=== PATIENT | female | born 1995 ===

== ENCOUNTER → 2018-01-05 | Emergency (ER) | payer BC ==
[~2018-01-05] MED LIST: Sulfamethox/Trimethoprim DS 800/160* TAB PO ONE
[2018-01-05 23:51] LABS: Urine Appearance Cloudy; Urine Blood 3+ (Negative); Urine Color Yellow; Urine Ketones Negative (Negative); Urine Protein 1+(30 mg/dL) (Negative); Urine Red Blood Cell 3+(>10/hpf) (Absent); Urine Specific Gravity 1.006 (1.010-1.030); Urine Urobilinogen Negative (Negative); Urine White Blood Cell 3+(>20/hpf) (Absent)
--- NOTE | 2018-01-05 23:53 | ED ---
GI/ HPI - HPI Summary HPI Summary: A 26 y/o female presents to the ED c/o dysuria since 09:00 on 01/05/2018. She thought she had a UTI, so she drank cranberry juice and water all day. When taking a shower she noticed tightness in her mid-lower back. She took Advil and used a heating pad. After showering laying down to sleep trying multiple positions hurt and so she came into the ED. She admits to having nausea, chills and abd pain, but she denies fevers, vomiting and hematuria. She denies a Hx of UTI. - History of Current Complaint Chief Complaint: EDUrogenitalProblems Time Seen by Provider: 01/05/18 23:37 Stated Complaint: BACK PAIN Hx Obtained From: Patient Onset/Duration: Started Hours Ago, Still Present Timing: Constant Severity: Moderate Current Severity: Moderate Pain Intensity: 3 - out of 10 Pain Radiates to: Back Associated Signs and Symptoms: Positive: Nausea, Chills, Abdominal Pain - Allergy/Home Medications Allergies/Adverse Reactions: Allergies Allergy/AdvReac Type Severity Reaction Status Date / Time No Known Allergies Allergy Verified 01/05/18 23:08 PMH/Surg Hx/FS Hx/Imm Hx Endocrine/Hematology History: Denies: Hx Diabetes Cardiovascular History: Denies: Hx Cardiomegaly, Hx Hypertension Infectious Disease History: No Infectious Disease History: Denies: Traveled Outside the [place] in Last 30 Days - Family History Known Family History: Positive: Cardiac Disease, Diabetes Negative: Hypertension - Social History Alcohol Use: Occasionally Substance Use Type: Reports: Marijuana Smoking Status (MU): Never Smoked Tobacco Review of Systems Positive: Chills. Negative: Fever Positive: Nausea. Negative: Vomiting Positive: dysuria. Negative: hematuria All Other Systems Reviewed And Are Negative: Yes Physical Exam - Summary Physical Exam Summary: Appearance: Well-appearing, Well-nourished, lying in bed comfortably Skin: Warm, dry, no obvious rash Eyes: sclera anicteric, no conjunctival pallor ENT: mucous membranes moist, pharynx appears normal Neck: Supple, nontender Respiratory: Clear to auscultation, no signs of respiratory distress Cardiovascular: Normal S1, S2. No murmurs. Normal distal pulses in tibial and radial bilaterally. Abdomen: Soft, nontender, normal active bowel sounds present, No CVA tenderness Musculoskeletal: Normal, Strength/ROM Intact Neurological: A&Ox3, awake and alert, mentation is normal, speech is fluent and appropriate Psychiatric: affect is normal, does not appear anxious or depressed Triage Information Reviewed: Yes Vital Signs On Initial Exam: Initial Vitals Temp Pulse Resp BP Pulse Ox 98.2 F 114 15 120/72 99 01/05/18 23:06 01/05/18 23:06 01/05/18 23:06 01/05/18 23:06 01/05/18 23:06 Vital Signs Reviewed: Yes Diagnostics - Vital Signs Vital Signs Temp Pulse Resp BP Pulse Ox 01/05/18 23:06 98.2 F 114 15 120/72 99 - Laboratory Lab Statement: Any lab studies that have been ordered have been reviewed, and results considered in the medical decision making process. GIGU Course/Dx - Course Course Of Treatment: A 26 y/o female presents to the ED c/o dysuria since 09:00 on 01/05/2018. She thought she had a UTI, so she drank cranberry juice and water all day. When taking a shower she noticed tightness in her mid-lower back. She took Advil and used a heating pad. After showering laying down to sleep trying multiple positions hurt and so she came into the ED. She admits to having nausea, chills and abd pain, but she denies fevers, vomiting and hematuria. She denies a Hx of UTI. The PE revealed no CVA tenderness. Dx:UTI. The pt will be discharged and is agreeable with this plan. Discharge - Discharge Plan Condition: Good Disposition: HOME Prescriptions: Fluconazole [Diflucan 150 MG (NF)] 150 mg PO ONCE #1 tab Sulfamethox/Trimethoprim DS* [Bactrim DS 800/160 TAB*] 1 tab PO BID #10 tab Referrals: [facility] [Outside] - 2 Days (if not improving) Additional Instructions: I don't believe the back pain and the UTI are related, but if you start to feel more ill or are not improving after a couple of days of antibiotics you should be checked again, either here or at [facility] - Attestation Statements Document Initiated by Scribe: Yes Documenting Scribe: Leobardo Hansen Provider For Whom Scribe is Documenting (Include Credential): Daniel Gold MD Scribe Attestation: I, Leobardo Hansen, scribed for Daniel Gold MD on 01/06/18 at 0000.
[2018-01-06 00:31] VITALS: BP 122/76
== END | disposition home or self-care (01) ==
LOC: ED 23:02
DX: R30.0 Dysuria (principal); R11.0 Nausea; R68.83 Chills (without fever); R10.9 Unspecified abdominal pain
CPT/HCPCS: 81003; 81015; 87086; 99282; A9270-GY